=== PATIENT | male | born 1985 | race Two or more races ===

== ENCOUNTER 2023-02-17 14:11 | Emergency (ER) | payer BC ==
[~2023-02-17] VITALS: Ht 170.2 cm; Wt 83.9 kg
[2023-02-17] MEDS ORDERED: WELLBUTRIN SR150 MG PO (14:40)
[2023-02-17] MEDS ORDERED: AMITRIPTYLINE H10 MG PO (14:40)
[2023-02-17] MEDS ORDERED: ZESTRIL10 M1 PO (14:42)
== END 2023-02-17 20:39 | disposition home or self-care (01) ==
LOC: ER 14:11
DX: L03.221 Cellulitis of neck (principal); Z88.0 Allergy status to penicillin; Z88.6 Allergy status to analgesic agent

== ENCOUNTER 2023-02-24 06:05 | Emergency (ER) | payer BC ==
[~2023-02-24] VITALS: Ht 170.2 cm; Wt 81.6 kg
[~2023-02-24 06:05] MED LIST: AMITRIPTYLINE H10 MG PO; WELLBUTRIN SR150 MG PO; ZESTRIL10 M1 PO
== END 2023-02-24 11:10 | disposition home or self-care (01) ==
LOC: ER 06:05
DX: M54.2 Cervicalgia (principal); R07.9 Chest pain, unspecified; Z88.8 Allergy status to other drugs, medicaments and biological substances; Z91.013 Allergy to seafood
CPT/HCPCS: 72141